=== PATIENT | male | born 2000 | race Caucasian/White ===

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

== ENCOUNTER 2019-05-20 00:01 | Emergency (ER) | payer MEDICAID ==
[~2019-05-20] VITALS: Ht 170.2 cm; Wt 76.2 kg
[2019-05-20 00:07] VITALS: Ht 170.2 cm; Wt 76.2 kg
[2019-05-20 05:41] VITALS: BP 112/66
== END 2019-05-20 05:41 | disposition home or self-care (01) ==
LOC: ED 00:01
DX: R05 Cough (principal); R06.02 Shortness of breath; R50.9 Fever, unspecified
CPT/HCPCS: Q0092